=== PATIENT | female | born 1980 | race Caucasian/White ===

== ENCOUNTER 2023-10-25 05:50 | Emergency (ER) | payer MEDICAID ==
[~2023-10-25] VITALS: Ht 165.1 cm; Wt 83.9 kg
[2023-10-25 06:04] VITALS: BP 131/83; PULSE 96; RESP 16; TEMP 96.9; O2SAT 100
[2023-10-25] MEDS ORDERED: IBUP-2213 PO (06:45)
[2023-10-25] MEDS ORDERED: AMOX1TAB8 PO (06:45)
[2023-10-25] MEDS: ACETAMINOPHEN 325 MG TAB PO ONE (07:24)
[2023-10-25] MEDS: KETOROLAC 30 MG/ML VIAL IM ONE (07:24)
[2023-10-25 07:26] VITALS: BP 131/83; PULSE 96; RESP 16; TEMP 96.9; O2SAT 100
== END 2023-10-25 07:26 | disposition home or self-care (01) ==
LOC: MED 05:50
DX: K11.20 Sialoadenitis, unspecified (principal); Z79.1 Long term (current) use of non-steroidal anti-inflammatories (NSAID); Z79.2 Long term (current) use of antibiotics
CPT/HCPCS: 99283